=== PATIENT | female | born 2000 | race Two or more races ===

== ENCOUNTER 2024-03-25 07:36 | Emergency (ER) | payer OTHER ==
[~2024-03-25] VITALS: Ht 165.1 cm; Wt 61.2 kg
[2024-03-25 07:47] VITALS: BP 110/77; O2SAT 100
[2024-03-25] MEDS ORDERED: ONDANSETRON HCL 2 MG/ML VIAL IV ONE (08:30)
[2024-03-25] MEDS ORDERED: 0.9 % SODIUM CHLORIDE 1,000 ML IV ONE (08:30)
[2024-03-25] MEDS ORDERED: FAMOtidine 10 MG/ML (4ML VIAL) IV ONE (08:30)
[2024-03-25] MEDS ORDERED: ONDANSETRON HCL 2 MG/ML VIAL ONE (08:33)
[2024-03-25] MEDS ORDERED: FAMOTIDINE/PF 20 MG/2 ML VIAL ONE (08:33)
[2024-03-25 09:19] LABS: HEMOGLOBIN 11.8 g/dL (12.0-15.00); MEAN CORPUSCULAR HEMOGLOBIN 26.4 pg (27.00-32.0); MEAN CORPUSCULAR HGB CONC 32.6 g/dl (32.0-36.0); PLATELET COUNT 167 K/uL (150-450); RED BLOOD COUNT 4.45 M/uL (4.00-6.00); RED CELL DISTRIBUTION WIDTH 15.2 % (11.5-14.5)
[2024-03-25 09:49] LABS: ALKALINE PHOSPHATASE 62 U/L (50-136); ALT/SGPT 18 U/L (12-78); ANION GAP 8 (10.0-20.0); AST/SGOT 12 U/L (15-37); BILIRUBIN TOTAL 0.29 mg/dL (0.3-1.2); BLOOD UREA NITROGEN 14 mg/dL (7-18); BUN CREA RATIO 23 (7.0-25.0); CALCIUM 8.9 mg/dL (8.5-10.1); CARBON DIOXIDE 28 mEq/L (21-32); CHLORIDE 111 mmol/L (98-107); CREATININE SERUM 0.61 mg/dL (0.55-1.02); GFR 121.54; GLUCOSE FASTING 101 mg/dL (65-100); OSMOLALITY SERUM 286 MOSM/KG (275-295); POTASSIUM 4.29 mEq/L (3.5-5.1); SODIUM 143 mmol/L (136-145)
[2024-03-25 09:52] LABS: HCG QUANTITATIVE < 1 mUI/mL (1-3)
[2024-03-25 10:26] LABS: URINE APPEARANCE Cloudy; URINE BILIRRUBIN Negative (NEGATIVE); URINE BLOOD Negative; URINE COLOR Yellow; URINE GLUCOSE Negative (NEGATIVE); URINE LEUKOCYTE Negative; URINE NITRATE Negative; URINE PROTEIN Trace (NEGATIVE); URINE UROBILINOGEN 0.2 E.U./dl
[2024-03-25 10:28] LABS: URINE BACTERIA 2299.7 uL (0.0-1933); URINE EPITHELIAL CELLS 21.5 uL (0.0-38.8); URINE RBC 14.1 uL (0.0-20.8); URINE WBC 15.8 uL (0.0-23.2)
[2024-03-25 10:35] LABS: URINE CAST 0.29 uL (0.0-1.40); URINE KETONE 40 (NEGATIVE)
[2024-03-25] MEDS ORDERED: PEPCID AC20 MG PO (11:48)
[2024-03-25] MEDS ORDERED: ZOFRAN8 MG PO (11:48)
== END 2024-03-25 12:14 | disposition home or self-care (01) ==
LOC: ER 07:38
PROVIDERS: General Practice
DX: K52.89 Other specified noninfective gastroenteritis and colitis (principal); F31.89 Other bipolar disorder